=== PATIENT | male | born 1975 | race Two or more races ===

== ENCOUNTER 2024-02-09 23:33 | Emergency (ER) | payer MEDICAID, OTHER ==
[~2024-02-09] VITALS: Ht 180.3 cm; Wt 117.3 kg
[2024-02-10 00:24] VITALS: BP 145/96; PULSE 102; RESP 18; O2SAT 98
[2024-02-10] MEDS ORDERED: CYCL-611 PO (02:50)
[2024-02-10] MEDS ORDERED: IBUP1TAB5 PO (02:50)
[2024-02-10] MEDS: HYDROcodone-ACET 5/325MG TAB PO ONE (04:16)
== END 2024-02-10 04:20 | disposition home or self-care (01) ==
LOC: ER 23:33
DX: S06.0X1A Concussion with loss of consciousness of 30 minutes or less, initial encounter (principal); S13.8XXA Sprain of joints and ligaments of other parts of neck, initial encounter; S00.83XA Contusion of other part of head, initial encounter; M50.323 Other cervical disc degeneration at C6-C7 level; Y04.2XXA Assault by strike against or bumped into by another person, initial encounter; Y93.89 Activity, other specified; Y92.89 Other specified places as the place of occurrence of the external cause; Y99.8 Other external cause status
CPT/HCPCS: 70450; 70486; 72125